=== PATIENT | male | born 1990 | race Caucasian/White ===

== ENCOUNTER 2017-12-10 10:54 | Emergency (ER) | payer SELFPAY ==
[2017-12-10 11:10] VITALS: BP 140/97
[2017-12-10] MEDS ORDERED: Acetaminophen 325 MG Tab PO ONE (11:14)
[2017-12-10] MEDS ORDERED: Ketorolac 30 MG/ML SDV IVPUSH SCH (11:15)
[2017-12-10] MEDS ORDERED: Dextrose 5%-0.9% NaCl 1,000 ML IV SCH (11:15)
[2017-12-10] MEDS ORDERED: Budesonide 0.5 MG/2 ML Neb Susp NEB ONE (11:16)
[2017-12-10] MEDS ORDERED: Albuterol/Ipratropium 3.0-0.5 MG/3 ML Neb Soln NEB ONE (11:16)
--- NOTE | 2017-12-10 11:18 | EDM.PDOC ---
ED HPI GENERAL MEDICAL PROBLEM - General Chief Complaint: Respiratory Problem Stated Complaint: DIFFICULTY BREATHING Time Seen by Provider: 12/10/17 11:07 Source of Information: Reports: Patient History Limitations: Reports: No Limitations - History of Present Illness INITIAL COMMENTS - FREE TEXT/NARRATIVE: 27-year-old male presents to the ED with acute onset of illness starting yesterday afternoon. States he was out shoveling snow for over an hour and a half which was very hard work. States she got very sweaty and then after that started to feel cold chills and developed a productive sounding cough with hoarseness. Cough to good portion of the night with poor sleep. Getting up much phlegm. At present he has quite a significant headache and diffuse body ache. Td breakfast this morning however. No nausea or vomiting. Patient is a smoker and chews tobacco. Onset: Sudden Onset Date: 12/09/17 Onset Time: 17:00 Duration: Getting Worse Location: Reports: Chest (Paroxysmal cough minimally productive. He is a smoker plus he chews tobacco as well.), Generalized (Generalized myalgia with a headache.) Quality: Reports: Ache (Generalized), Other Severity: Moderate (Headache.) Improves with: Reports: None Worsens with: Reports: Other (Coughing makes things worse on lying down makes the cough worse.) Context: Reports: Other. Denies: Activity, Exercise, Sick Contact, Trauma Associated Symptoms: Reports: Chest Pain, Cough (Acute onset of illness yesterday afternoon), cough w sputum, Fever/Chills, Headaches, Malaise (Mildly productive.), Shortness of Breath, Weakness. 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: Reports: Other (see below) (None.) Chest Pain Score (Numeric/FACES): 7 - Related Data Allergies Allergy/AdvReac Type Severity Reaction Status Date / Time No Known Allergies Allergy Verified 12/10/17 11:05 Home Meds: Home Meds Chlorpheniramine/HYDROcodone [Tussionex Pennkinetic] 5 ml PO Q12H PRN #60 ml [Rx] Oseltamivir [Tamiflu] 75 mg PO BID #10 cap 12/10/17 [Rx] Past Medical History - Past Surgical History GI Surgical History: Reports: Appendectomy Social & Family History - Tobacco Use Smoking Status *Q: Current Every Day Smoker Years of Tobacco use: 10 Packs/Tins Daily: 1 - Alcohol Use Days Per Week of Alcohol Use: 3 Number of Drinks Per Day: 5 Total Drinks Per Week: 15 - Recreational Drug Use Recreational Drug Use: No - Living Situation & Occupation Living situation: Reports: Single Occupation: Employed ED ROS GENERAL - Review of Systems Review Of Systems: See Below Constitutional: Reports: Fever, Chills, Malaise, Weakness, Fatigue, Decreased Appetite HEENT: Reports: No Symptoms Respiratory: Reports: Shortness of Breath, Cough, Sputum. Denies: Wheezing, Pleuritic Chest Pain, Hemoptysis (Mild sputum production) Cardiovascular: Reports: No Symptoms, Chest Pain, Dyspnea on Exertion Endocrine: Reports: Fatigue GI/Abdominal: Reports: No Symptoms : Reports: No Symptoms Musculoskeletal: Reports: Muscle Pain Skin: Reports: No Symptoms (Generalized myalgia) Neurological: Reports: Headache. Denies: Confusion, Dizziness, Pre-Existing Deficit, Seizure, Syncope, Trouble Speaking, Difficulty Walking, Weakness, Gait Disturbance, Other Psychiatric: Reports: No Symptoms Hematologic/Lymphatic: Reports: No Symptoms Immunologic: Reports: No Symptoms ED EXAM, GENERAL - Physical Exam Exam: See Below Exam Limited By: No Limitations General Appearance: Alert, WD/WN, Other (Does feel warm to palpation. Temperatures recorded at 37.9 O2 sats are 96% on room air.) Eye Exam: Bilateral Eye: Normal Inspection Ears: Normal TMs Throat/Mouth: Other Head: Atraumatic (Diffuse inflammation of the oropharynx and soft palate due to cigarette smoking. No exudate or sign of infection), Normocephalic Neck: Normal Inspection, Supple, Non-Tender, Full Range of Motion. No: Lymphadenopathy (L), Lymphadenopathy (R) Respiratory/Chest: No Respiratory Distress, Lungs Clear, Normal Breath Sounds, No Accessory Muscle Use, Chest Non-Tender, Other Cardiovascular: Normal Peripheral Pulses, No Edema, No Gallop, No Murmur ( Transmitted sounds from the upper airway.), No Rub, Tachycardia (ST tachycardia of 1 26/m.). No: Regular Rate, Rhythm Peripheral Pulses: 3+: Posterior Tibial (L), Posterior Tibial (R), Dorsalis Pedis (L), Dorsalis Pedis (R) GI/Abdominal: Normal Bowel Sounds, Soft, Non-Tender, No Organomegaly, No Abnormal Bruit, No Mass, Pelvis Stable, Other (Well-healed appendectomy scar.) Back Exam: Normal Inspection, Full Range of Motion. No: CVA Tenderness (L), CVA Tenderness (R) Extremities: Normal Inspection, Normal Range of Motion, Non-Tender, No Pedal Edema Neurological: Alert, Oriented, CN II-XII Intact, Normal Cognition, No Motor/ Sensory Deficits Psychiatric: Normal Affect, Normal Mood Skin Exam: Warm, Dry, Intact, Normal Color, No Rash, Tattoo(s) (Multiple tattoos particularly large "pit bull" across his upper back.) Course - Vital Signs Last Recorded V/S: Last Vital Signs Temp 37.9 C 12/10/17 11:27 Pulse 120 H 12/10/17 11:08 Resp 16 12/10/17 11:08 BP 140/97 H 12/10/17 11:08 Pulse Ox 99 12/10/17 11:32 - Orders/Labs/Meds Orders: Active Orders 24 hr Category Date Time Status RT Aerosol Therapy [RC] ASDIRECTED Care 12/10/17 11:16 Active Dextrose 5%-0.9% NaCl [Dextrose 5%-Normal Saline] 1,000 Med 12/10/17 11:15 Active ml IV ASDIRECTED Ketorolac [Toradol] Med 12/10/17 11:15 Active 30 mg IVPUSH ONETIME Medication Orders Dextrose/Sodium Chloride (Dextrose 5%-Normal Saline) 1,000 mls @ 999 mls/hr IV ASDIRECTED ROLANDO Last Admin: 12/10/17 11:27 Dose: 999 mls/hr Ketorolac Tromethamine (Toradol) 30 mg IVPUSH ONETIME ROLANDO Last Admin: 12/10/17 11:28 Dose: 30 mg Labs: Laboratory Tests 12/10/17 12/10/17 Range/Units 11:20 11:20 WBC 8.82 (4.23-9.07) K/mm3 RBC 4.90 (4.63-6.08) M/mm3 Hgb 14.8 (13.7-17.5) gm/L Hct 42.4 (40.1-51.0) % MCV 86.5 (79.0-92.2) fl MCH 30.2 (25.7-32.2) pg MCHC 34.9 (32.2-35.5) g/dl RDW Std Deviation 39.4 (35.1-43.9) fL Plt Count 201 (163-337) K/mm3 MPV 10.2 (9.4-12.3) fl Neutrophils % (Manual) 78 H (40-60) % Band Neutrophils % 1 (0-10) % Lymphocytes % (Manual) 11 L (20-40) % Atypical Lymphs % 0 % Monocytes % (Manual) 10 (2-10) % Eosinophils % (Manual) 0 L (0.8-7.0) % Basophils % (Manual) 0 L (0.2-1.2) Platelet Estimate Adequate Plt Morphology Comment Normal RBC Morph Comment Normal Sodium 131 L (136-145) mEq/L Potassium 3.9 (3.5-5.1) mEq/L Chloride 96 L (98-107) mEq/L Carbon Dioxide 23 (21-32) mEq/L Anion Gap 15.9 H (5-15) BUN 16 (7-18) mg/dL Creatinine 1.1 (0.7-1.3) mg/dL Est Cr Clr Drug Dosing 111.98 mL/min Estimated GFR (MDRD) > 60 (>60) mL/min BUN/Creatinine Ratio 14.5 (14-18) Glucose 111 H (74-106) mg/dL Calcium 9.1 (8.5-10.1) mg/dL Total Bilirubin 0.5 (0.2-1.0) mg/dL AST 26 (15-37) U/L ALT 23 (16-63) U/L Alkaline Phosphatase 65 (46-116) U/L C-Reactive Protein 7.2 H* (<1.0) mg/dL Total Protein 7.5 (6.4-8.2) g/dl Albumin 3.9 (3.4-5.0) g/dl Globulin 3.6 gm/dL Albumin/Globulin Ratio 1.1 (1-2) Meds: Medications Generic Name Dose Route Start Last Admin Trade Name Freq PRN Reason Stop Dose Admin Dextrose/Sodium Chloride 1,000 mls @ 999 mls/hr 12/10/17 11:15 12/10/17 11:27 Dextrose 5%-Normal Saline IV 999 mls/hr ASDIRECTED ROLANDO Administration Ketorolac Tromethamine 30 mg 12/10/17 11:15 12/10/17 11:28 Toradol IVPUSH 30 mg ONETIME ROLANDO Administration Discontinued Medications Generic Name Dose Route Start Last Admin Trade Name Chaparro PRN Reason Stop Dose Admin Acetaminophen 975 mg 12/10/17 11:14 12/10/17 11:27 Tylenol PO 12/10/17 11:15 975 mg NOW ONE Administration Albuterol/Ipratropium 3 ml 12/10/17 11:16 12/10/17 11:32 Duoneb 3.0-0.5 Mg/3 Ml NEB 12/10/17 11:17 3 ml ONETIME ONE Administration Budesonide 0.5 mg 12/10/17 11:16 12/10/17 11:32 Pulmicort NEB 12/10/17 11:17 0.5 mg ONETIME ONE Administration Ibuprofen 600 mg 12/10/17 12:46 Motrin PO 12/10/17 12:47 ONETIME ONE Ibuprofen 600 mg 12/10/17 12:46 Motrin PO 12/10/17 12:47 ONETIME ONE - Radiology Interpretation Free Text/Narrative:: 27-year-old male presents the ED with acute onset of illness including fever chills paroxysmal cough headache and generalized mild myalgia. She did not have a flu shot this year. Patient is a cigarette smoker and chews tobacco as well. He is febrile on examination Indocin throat exam is shows no oropharyngeal erythema from cigarette smoking. Chest computed reveals a few chest but it sounds from the upper respiratory tree. No wheezes. O2 sats 96% on room air. Plan influenza screen one view chest x-ray to be done. Routine labs CBC CMP and a CRP will give him intravenous fluids D5 normal saline at open since his heart rate is 126 at rest. Given Tylenol 975 mg by mouth for fever relief and Toradol 30 mg IV for body ache and headache relief. I will add Pulmicort 0.5 mg to his treatment program with inhaled DuoNeb to help suppress his severe cough. - Re-Assessments/Exams Free Text/Narrative Re-Assessment/Exam: 12/10/17 11:49 chest x-ray done portably is within normal limits showing no signs of pneumonia. Cardiac silhouette is normal as well. 12/10/17 12:11 influenza screen is negative. However it is done within the first 24 hours of onset of illness and may be a false negative. Temperature is gone up to 101.8 in spite of Tylenol 975 mg orally and Toradol 30 mg IV. Awaiting his chemistry. 12/10/17 12:50 Labs reveal a normal white count at 8.82 with 78% neutrophils and 1% bands reported. Hemoglobin is 14.8 with hematocrit of 42.4. White count is normal at 201,000. Sodium is slightly low at 131. Potassium is 3.9. Chloride was 96 with a bicarbonate of 23. And a gap mildly elevated at 15.9. BUN is 16. Creatinine is 1.1. GFR is greater than 60. . Glucose is 111.. Calcium is 9.1. Liver function normal. C-reactive protein is elevated at 7.2. Temperature remains 101.8. Will give Motrin 600 mg per ora. 12/10/17 13:00 clinically the patient has influenza and I believe his initial influenza screen is false negative. He will be therefore placed on Tamiflu 75 mg twice a day for 5 days. Tussionex cough syrup 5 mils every 12 hours when necessary for cough relief. Motrin 600 mg every 6 hours for fever relief. Plenty of fluids such as Gatorade or Powerade. No will be given to excuse him from the work place for the next 5 days. Departure - Departure Time of Disposition: 13:00 Disposition: Home, Self-Care 01 Condition: Fair Clinical Impression: Influenza - Discharge Information Prescriptions: Chlorpheniramine/HYDROcodone [Tussionex Pennkinetic] 5 ml PO Q12H PRN #60 ml PRN Reason: cough relief. Oseltamivir [Tamiflu] 75 mg PO BID #10 cap Referrals: PCP,None [Primary Care Provider] - Forms: ED Department Discharge, ED Return to Work/School Form Additional Instructions: Evaluation the emergency room today in regards to acute onset of upper respiratory tract infection since yesterday afternoon. Acute onset of high fever chills sweats paroxysmal cough that he aches and headache. Also loss of appetite all fluids symptoms. Is MB is quite prevalent at our community at this time. Your influenza screen that we did in the ED proved to be negative. However I believe this is false negative. Often when patients present within 24 hours onset of illness the test itself is negative. It returned positive tomorrow. Chest x-ray was done to make sure there was no sign of pneumonia and it was normal. Lab work to revealed essentially a normal white count with a viral infection compatible with influenza. Treatment is therefore antiviral medication Tamiflu 75 mg twice daily for the next 5 days starting this afternoon and second one about 11:00 tonight. Cough syrup is Tussionex 5 mils every 12 hours needed for cough relief. You should plan to take medicine good hour before planning to go to bed as it takes an hour to work and should be taken with food in your stomach. Continue Motrin 600 mg every 6 hours as needed for fever and body ache and headache relief. After the third fourth tablet of Tamiflu U will start to feel much improved with reduction of fever body ache and headache. Cough may persist for up to 2 weeks. You're considered contagious for the next 6 days. Note will be given to excuse her from the work place for the next week. I also did write a prescription for your to push whom you live with who is at high risk of liban this illness as well. He is to start with Tamiflu 75 mg once daily to try and prevent the fluid from occurring. However if he develops symptoms he's to take it twice daily similar to you. - My Orders Last 24 Hours: My Active Orders 12/10/17 11:15 Dextrose 5%-0.9% NaCl [Dextrose 5%-Normal Saline] 1,000 ml IV ASDIRECTED Ketorolac [Toradol] 30 mg IVPUSH ONETIME 12/10/17 11:16 RT Aerosol Therapy [RC] ASDIRECTED - Assessment/Plan Last 24 Hours: My Active Orders 12/10/17 11:15 Dextrose 5%-0.9% NaCl [Dextrose 5%-Normal Saline] 1,000 ml IV ASDIRECTED Ketorolac [Toradol] 30 mg IVPUSH ONETIME 12/10/17 11:16 RT Aerosol Therapy [RC] ASDIRECTED
[2017-12-10] MEDS ORDERED: Ibuprofen 600 MG Tab PO ONE ×2 (12:46)
--- NOTE | 2017-12-10 12:46 | CR ---
Chest: Frontal view of the chest was obtained. Comparison: No prior study. Heart size and mediastinum are normal. Lungs are clear. Bony structures are grossly intact. Impression: 1. Nothing acute is identified on frontal chest x-ray. Diagnostic code #1
== END 2017-12-10 13:25 | disposition home or self-care (01) ==
LOC: EEVIPCON 10:54 → JD.ED 10:54
DX: J11.1 Influenza due to unidentified influenza virus with other respiratory manifestations (principal); F17.210 Nicotine dependence, cigarettes, uncomplicated
CPT/HCPCS: 36415; 71045; 80053; 85025; 86140; 87804; 94640; 96361; 96374; 99285; A9270; J1885; J7042; 99284